=== PATIENT | male | born 1960 | race African-American/Black ===

== ENCOUNTER 2016-12-10 16:47 | Emergency (ER) | payer MEDICAID ==
[2016-12-10 17:02] VITALS: BP 151/95
--- NOTE | 2016-12-10 17:09 | ERNOTE ---
[facility] Date of Service: 12/10/16 Presenting Symptoms: dental pain Time Seen by Provider: 12/10/16 17:01 Source: patient, RN notes reviewed Exam Limitations: no limitations - Immun/Allergies/Home Medications Immunizations: IMMUNIZATION HX Immunizations Up to Date Yes History of Influenza Vaccine No Hx Pneumococcal Vaccination No Allergies/Adverse Reactions: Allergies Allergy/AdvReac Type Severity Reaction Status Date / Time No Known Allergies Allergy Verified 12/10/16 17:02 Home Medications: HOME MEDICATIONS HYDROcodone/ACETAMINOPHEN [[place] 5-325] 1 tab PO Q6H PRN #16 tab 12/10/16 [Last Taken Unknown] Ibuprofen [Motrin] 600 mg PO Q6H PRN #40 tab 12/10/16 [Last Taken Unknown] Penicillin V Potassium [Pen-Vee K] 500 mg PO Q8H #30 tab 12/10/16 [Last Taken Unknown] - History of Present Illness Narrative: 56 year old male presents for dental pain that began last evening when one of his left lower molars broke. He contacted his dentist and has an appointment on January 21. He was told to take ibuprofen for pain but has not attempted to take anything. Date (Duration): 12/09/16 ENT Location: Present: dental Prearrival Treatment: Present: no prearrival treatment Prior Treament: Denies: recently seen Review of Systems - Review of Systems Constitutional: Absent: fever, chills EYE: Present: no symptoms reported ENT: Absent: nose congestion, sore throat Respiratory: Absent: shortness of breath, cough Cardiology: Present: no symptoms reported Gastrointestinal/Abdominal: Absent: nausea, vomiting, abdominal pain Genitourinary: Present: no symptoms reported Musculoskeletal: Absent: muscle pain, neck pain Skin: Absent: rash, lesions, lumps Neurological: Absent: headache, dizziness/light-headedness Endocrine: Present: no symptoms reported Hematologic/Lymphatic: Present: no symptoms reported Psych: Present: no symptoms reported - Patient's Past Medical History Patient History - Medical: No pertinent hx Patient History - Cardiac/Respiratory: Hypertension, TIA Patient History - Cancer: No Hx of Cancer Patient History - Surgical Procedures: Noncontributory, Other Patient History - Other: None - Social History Living Situations: home Abuse History: No History of abuse Psych History: No pertinent hx Smoking Status: Current every day smoker Have you smoked in the past 12 months: Yes Alcohol Use: none Drug Use: none - Immunizations Immunizations Up to Date: Yes Hx Pneumococcal Vaccination: No History of Influenza Vaccine: No Physical Exam - Physical Exam General Appearance: Present: wd/wn, alert, mild distress Head Exam: Present: normal inspection. Absent: swelling Eye Exam: Normal inspection: bilateral, PERRL: bilateral Ears, Nose, Throat: Present: normal pharynx, other - posterior aspect of #19 fractured, fillings and decay present. Absent: abnormal TM (R), abnormal TM (L) , dry mucous membranes Neck: Present: normal inspection, nontender, supple Respiratory: Present: no respiratory distress, normal breath sounds, lungs clear Cardiovascular/Chest: Present: regular rate, rhythm, no murmur Neurological Exam: Present: alert, oriented, normal mood/affect, no motor/ sensory deficits Skin Exam: Present: normal color, warm/dry ED Progress - Vital Signs Patient's Vital Signs:: I have reviewed the patient's vital signs. Vital Signs: Vital Signs 12/10/16 16:58 Temperature 36.8 C Pulse Rate 88 Respiratory 16 Rate Blood Pressure 151/95 O2 Sat by Pulse 93 Oximetry - Progress/Reassessment Chief Complaint: Dental Problem Progress:: Unchanged Departure Clinical Impression: Dental caries Fractured tooth Qualifiers: Encounter type: initial encounter Fracture type: open Qualified Code(s): S02.5XXB - Fracture of tooth (traumatic), initial encounter for open fracture - Departure Disposition: Home Follow Up Needed Condition: Stable Instructions: Dental Caries, [id number] Additional Instructions: Try covering broken tooth with a temporary filling See a dentist Referrals: Pablito Acosta MD [Primary Care Provider] - Prescriptions: HYDROcodone/ACETAMINOPHEN [[place] 5-325] 1 tab PO Q6H PRN #16 tab PRN Reason: Pain Ibuprofen [Motrin] 600 mg PO Q6H PRN #40 tab PRN Reason: Pain Penicillin V Potassium [Pen-Vee K] 500 mg PO Q8H #30 tab
[2016-12-10] MEDS ORDERED: IBUPROFEN 600 MG TABLET PO ONE (17:19)
[2016-12-10] MEDS ORDERED: PENICILLIN V POTASSIUM 250 MG TABLET PO ONE (17:19)
[2016-12-10] MEDS ORDERED: HYDROcodone/ACETAMINOPHEN 1 EACH TABLET PO ONE (17:19)
[2016-12-10] MEDS ORDERED: IBUPROFEN 600 MG TABLET ONE (17:22)
[2016-12-10] MEDS ORDERED: HYDROcodone/ACETAMINOPHEN 1 EACH TABLET ONE (17:22)
[2016-12-10] MEDS ORDERED: PENICILLIN V POTASSIUM 250 MG TABLET ONE (17:23)
== END 2016-12-10 17:34 | disposition home or self-care (01) ==
LOC: ER 16:47
DX: K02.9 Dental caries, unspecified (principal); S02.5XXB Fracture of tooth (traumatic), initial encounter for open fracture; F17.200 Nicotine dependence, unspecified, uncomplicated; Z86.73 Personal history of transient ischemic attack (TIA), and cerebral infarction without residual deficits

== ENCOUNTER 2017-02-05 13:40 | Observation (INO) | payer MEDICAID ==
[2017-02-05] MEDS ORDERED: LIDOCAINE HCL 20 ML UDC PO ONE (14:02)
[2017-02-05] MEDS ORDERED: SUCRALFATE 1 G/10 ML UDC PO ONE (14:02)
[2017-02-05] MEDS ORDERED: MAG HYDROX/ALUMINUM HYD/SIMETH 30 ML UDC PO ONE (14:02)
[2017-02-05 14:08] LABS: Hematocrit 42.3 % (42.0-52.0); Hemoglobin 14.8 gm/dL (13.5-18.0); Mean Cell Volume 88.9 fl (78-100); Mean Corpuscular Hemoglobin 31.1 pg (27-31); Mean Platelet Volume 9.3 fl (6.0-9.5); Neutrophil # 4.8 K/mm3 (1.3-6.0); Neutrophil % 45.7 % (42-75.0); Platelet Count 292 K/mm3 (150-450); Red Blood Count 4.76 M/mm3 (4.7-6.0); Red Cell Distribution Width 14.1 % (11.5-14.0); White Blood Count 10.5 K/mm3 (4.0-10.5)
--- NOTE | 2017-02-05 14:27 | ERNOTE ---
Chest Pain/Cardiac HPI Date of Service: 02/05/17 Chief Complaint: Chest Pain Time Seen by Provider: 02/05/17 13:44 Source: patient Exam Limitations: no limitations Immunizations: IMMUNIZATION HX Immunizations Up to Date No History of Influenza Vaccine No Hx Pneumococcal Vaccination No Allergies/Adverse Reactions: Allergies No Known Allergies Allergy (Verified 02/05/17 13:50) Home Medications: HOME MEDICATIONS Amlodipine Besylate 10 mg PO DAILY 02/05/17 [Last Taken Unknown] Metoprolol Succinate 50 mg PO BID 02/05/17 [Last Taken Unknown] Naproxen 550 mg PO BID 02/05/17 [Last Taken Unknown] hydrALAZINE HCL [Hydralazine HCl] 25 mg PO TID 02/05/17 [Last Taken Unknown] levETIRAcetam [Spritam] 1,000 mg PO BID 02/05/17 [Last Taken Unknown] Narrative: Pt. comes in with c/o 10/10 chest pain and upper abdomen pain intermittently for two weeks. Pt. states that this last episode started just afer lunch and worsened after he ate. Pt. denies any SOB, fever, vomiting, diarrhea, but does state that he has had alot of eruptuous gas and some mild nausea. Pt. denies any alleviating factors or prehospital treatment. Timing: getting worse Severity/Quality: pressure Location: epigastric, left chest Chest Pain Radiation: no radiation Activities at Onset: other - eating Modifying Factors - Improves: Present: nothing Modifying Factors - Worsens: Present: eating Nitro Today/Relief: no nitro taken today Aspirin Treatment Today: no aspirin today Associated Symptoms: Present: heartburn, nausea, other - eruptations Prior Chest Pain/Cardiac Workup: Reports: no prior cardiac workup, other - cerebral aneurism. Denies: heart attack, cardiac cath, echocardiogram Prior Treatment: Denies: recently seen, treated by physician, recently hospitalized Review of Systems - Review of Systems Constitutional: Present: no symptoms reported. Absent: fever, chills, weakness , fatigue, malaise EYE: Present: no symptoms reported ENT: Present: no symptoms reported Respiratory: Present: no symptoms reported. Absent: shortness of breath, cough , wheezing Cardiology: Present: chest pain. Absent: syncope, edema Gastrointestinal/Abdominal: Present: nausea, other - eruptions Genitourinary: Present: no symptoms reported Musculoskeletal: Present: no symptoms reported. Absent: back pain, joint pain Skin: Present: no symptoms reported Neurological: Present: no symptoms reported. Absent: headache, dizziness/light- headedness, numbness, tingling All Other Systems: All systems neg except as marked - Patient's Past Medical History Patient History - Medical: No pertinent hx Patient History - Cardiac/Respiratory: Hypertension, TIA Patient History - Cancer: No Hx of Cancer Patient History - Surgical Procedures: Noncontributory, Appendectomy, Other Patient History - Other: None - Social History Living Situations: home Abuse History: No History of abuse Psych History: No pertinent hx Smoking Status: Current every day smoker Alcohol Use: none Drug Use: none - Immunizations Immunizations Up to Date: No Hx Pneumococcal Vaccination: No History of Influenza Vaccine: No Physical Exam - Physical Exam General Appearance: Present: wd/wn, alert, no apparent distress Head Exam: Present: normal inspection, no evidence of injury Eye Exam: Normal inspection: bilateral, PERRL: bilateral, EOMI: bilateral Ears, Nose, Throat: Present: normal ENT inspection, normal pharynx Neck: Present: normal inspection, nontender, supple, full range of motion. Absent: lymphadenopathy (R), lymphadenopathy (L) Respiratory: Present: no respiratory distress, normal breath sounds, no accessory muscle use, chest nontender, lungs clear Cardiovascular/Chest: Present: regular rate, rhythm, no murmur, normal peripheral pulses Gastrointestinal/Abdominal: Present: normal bowel sounds, soft, no organomegaly , tenderness - mid upper abdomen, distended. Absent: rebound Back Exam: Present: normal inspection Extremity Exam: Present: normal inspection, non-tender, normal range of motion, no edema Neurological Exam: Present: alert, oriented, normal mood/affect, no motor/ sensory deficits Skin Exam: Present: normal color, warm/dry. Absent: pallor, skin rash ED Progress - Date and Time Seen: Date and Time: 02/05/17 14:24 Pt. states that pain is "almost gone" with GI cocktail. 02/05/17 15:08 As pt. is 57 and has a hx of recalcitrant HTN feel that pt needs to be fully ruled out for MA 02/05/17 15:[address] Barros and he agrees to accept pt for observation admission with no questions or orders at this time. - Results and Orders Patient's Lab Results:: I have reviewed the patient's lab results. - Vital Signs Patient's Vital Signs:: I have reviewed the patient's vital signs. Vital Signs: Vital Signs 02/05/17 13:43 Pulse Rate 87 Respiratory 32 H Rate Blood Pressure 148/92 O2 Sat by Pulse 99 Oximetry - EKG EKG: ST depression - inferior nonspecific minimal EKG read: Reviewed by me EKG Comments: Interp by Dr Rey. - X-Ray X-Ray #1 X-Ray: chest Interpretation: Reviewed by me X-ray Comments: No acute X-Ray #2 X-Ray: abdomen Interpretation: Reviewed by me X-ray Comments: non obstructive bowel gas pattern - Progress/Reassessment Chief Complaint: Chest Pain Progress:: Improved Departure Clinical Impression: Dehydration, GERD with esophagitis Chest pain Qualifiers: Chest pain type: unspecified Qualified Code(s): R07.9 - Chest pain, unspecified - Departure Disposition: [facility] Condition: Fair
[2017-02-05 14:28] LABS: ALT 22 U/L (19-67); AST 17 U/L (0-48); Albumin * 3.8 gm/dl (3.4-5.0); Alkaline Phosphatase * 112 U/L (50-170); Amylase * 75 U/L (25-115); Anion Gap 14.3 mmol/L (6.8-13.8); BUN/Creatinine Ratio 11.3 (9.0-21.6); Bilirubin, Total 0.5 mg/dL (0.0-1.1); Blood Urea Nitrogen 22 mg/dL (6-23); Ca. Corrected For Albumin 9.5 mg/dL (8.4-10.2); Calcium * 9.7 mg/dL (7.9-10.9); Carbon Dioxide 25.3 mmol/L (24-32.6); Chloride 106 mmol/L (97-106); Glucose * 100 mg/dL (70-110); Lipase 127 U/L (73-393); Potassium 3.6 mmol/L (3.4-4.6); Sodium 142 mmol/L (132-142)
[2017-02-05 14:30] LABS: Troponin I Less than 0.017 ng/ml (0.00-0.10)
[2017-02-05] MEDS ORDERED: NORMAL SALINE 1,000 ML IV ONE (15:04)
[2017-02-05 15:30] LABS: Urine Bilirubin Negative (NEGATIVE); Urine Blood Negative /ul (NEGATIVE); Urine Ketone Negative (NEGATIVE); Urine Nitrite Negative (NEGATIVE); Urine Protein 100 mg/dL (NEGATIVE); Urine Specific Gravity 1.025 SP.GR. (1.005-1.030); Urine Urobilinogen Normal (NORMAL)
[2017-02-05 15:34] LABS: Urine Appearance Clear; Urine Bacteria 1+; Urine Color Dark Yellow; Urine RBC None Seen /hpf (0-5)
[2017-02-05] MEDS ORDERED: ASPIRIN 81 MG TAB.CHEW PO ONE (15:37)
[2017-02-05] MEDS ORDERED: FAMOTIDINE 20 MG in DEXTROSE 5 % IN WATER 100 ML IV ONE ×2 (15:38)
[2017-02-05] MEDS ORDERED: ASPIRIN 81 MG TAB.CHEW ONE (15:38)
[2017-02-05 16:59] VITALS: BP 151/93
[2017-02-05] MEDS ORDERED: FAMOTIDINE 20 MG TABLET PO SCH (17:00)
--- NOTE | 2017-02-05 21:49 | DS ---
(1) Chest pain, rule out acute myocardial infarction Problem: Ruled-out (2) GERD with esophagitis Problem: Suspected Description of Stay: Mr. Rodriguez is a 57-yr-old AA male pt who presented to the ED on 02/05/17 for chest pain and was admitted under observation status to be ruled out for ACS/ ME. Pt reported that the pain had been going on for about 2 weeks and the location of pain was on the mid epigastric area and under the LT rib cage. He denied the associated symptoms of pain radiation to the neck, jaw and arm. He also denied SOB, Diaphoresis, n/v and heart palpitations. He was given GI cocktail at the ED and the pain subsided. Due to his age, race, hx of htn, he was admitted for repeat cardiac evaluation. The first EKG at the ED showed NSR and two sets of troponin were negative of ACS/ME. It was highly likely that his chest pain did not have any cardiac cause and more likely related to GI. He was determined to be in a stable condition to be discharge home. He was started on Pepcid 20 mg PO bid x 30 days and he was advised to follow-up with his PCP next week. Procedures Performed: none Discharge Disposition: Home self care Disposition: Home self-care Condition: Good Discharge Activity: Activity as tolerated Discharge Diet: General/regular food, Low fat/chol Problem Oriented Discharge Instructions to Patient/Family: Indigestion, Easy-to -Read, Acute Coronary Syndrome Additional Patient Instructions (free text): Follow-up with your primary care doctor next week. Prescriptions (Any new or edited meds): Famotidine [Pepcid] 20 mg PO BID #60 tablet Complete Home Medications List: Complete Home Medication List: Amlodipine Besylate 10 mg PO DAILY 02/05/17 Famotidine [Pepcid] 20 mg PO BID #60 tablet 02/05/17 Metoprolol Succinate 50 mg PO BID 02/05/17 Naproxen 550 mg PO BID 02/05/17 hydrALAZINE HCL [Hydralazine HCl] 25 mg PO TID 02/05/17 levETIRAcetam [Spritam] 1,000 mg PO BID 02/05/17
== END 2017-02-05 22:33 | disposition home or self-care (01) ==
LOC: ER 13:40 → MS 15:26
PROVIDERS: ADMIT Family Medicine; ATTEND Family Medicine
DX: K21.9 Gastro-esophageal reflux disease without esophagitis (principal); R07.9 Chest pain, unspecified; I10 Essential (primary) hypertension; E86.0 Dehydration
CPT/HCPCS: 36415; 71020; 74020; 80053; 81001; 82150; 83690; 84484; 85025; 87086; 93005; 96360; 96361; 96365; 99285; G0378